=== PATIENT | female | born 1990 | race African-American/Black ===

== ENCOUNTER 2019-03-16 09:30 | Day surgery (SDC) | payer OTHER ==
[2019-03-15 17:17] VITALS: BMI 32.5
[2019-03-16] VITALS (7 sets, daily range): BP systolic 100–141; BP diastolic 60–76; PULSE 16–68; RESP 16–18; Ht 162.6 cm; Wt 93.4 kg
[~2019-03-16] VITALS: Ht 162.6 cm; Wt 93.4 kg
[~2019-03-16 09:30] MED LIST: CEFAZOLIN 2 GM/50 ML (PMX) 50 ML IVPB ONE; SOD CHLORIDE 0.9% 1,000 ML IV SCH
[2019-03-16] MEDS ORDERED: BUPIVACAINE 0.5%/EPI (SDV) 30 ML INJ ONE (10:50)
[2019-03-16] MEDS ORDERED: PROPOFOL 20 ML ONE (10:52)
[2019-03-16] MEDS ORDERED: LIDOCAINE 2% (SDV) 5 ML INJ ONE (10:52)
[2019-03-16] MEDS ORDERED: MIDAZOLAM 1 MG/ML 2 ML INJ ONE (10:52)
[2019-03-16] MEDS ORDERED: DEXAMETHASONE 4 MG/ML 5 ML INJ ONE (10:52)
[2019-03-16] MEDS ORDERED: FENTAnyl 50 MCG/ML VIAL ONE (10:52)
[2019-03-16] MEDS ORDERED: SUCCINYLCHOLINE CHLORIDE 100 MG/5 ML SYG IV ONE (10:52)
[2019-03-16] MEDS ORDERED: ONDANSETRON 4 MG INJ ONE (10:52)
[2019-03-16] MEDS ORDERED: ROCURONIUM 50 MG INJ ONE ×2 (10:52→11:45)
--- NOTE | 2019-03-16 11:26 | PREAC ---
Date/Time of Note Date/Time of Note DATE: 03/16/19 TIME: 11:24 Anesthesia Eval and Record Evaluation Time Pre-Procedure Interview DATE: 03/16/19 TIME: 11:24 Age 28 Sex female NPO: 8 hrs Preoperative diagnosis Right Cheek mass Planned procedure Excision Right Cheek mass Past Medical History Past Medical History: None Surgery & Anesthesia Issues No known issue Meds Anticoagulation: No Beta Katt within 24 hr: No Reason Beta Katt not given: Pt. not on B-Katt No Active Prescriptions or Reported Meds Current Medications Sodium Chloride 1,000 ml @ 75 mls/hr [id number] IV ; Start 03/16/19 at 07:00; Stop 03/16/19 at 20:19 Meds reviewed: Yes Allergies Coded Allergies: No Known Drug Allergies (Unverified Allergy, Unknown, 03/15/19) Allergies Reviewed: Yes Labs/Studies Labs Reviewed: Reviewed by anesthesiologist test: Negative Pre-procedure Exam Last vitals Vital Signs Date Temp Pulse Resp B/P (MAP) Pulse Ox O2 O2 Flow FiO2 Time Delivery Rate 03/16/19 97.6 64 16 110/67 98 Room Air 10:16 (81) Airway: Adequate mouth opening Mallampati: Mallampati I Teeth: Normal Lung: Normal Heart: Normal ASA Physical Status ASA physical status: 1 Emergency: None Pre-operative Attestations Prior to commencing anesthesia and surgery, the patient was re-evaluated, there was verification of: *The patient's identity *The results of appropriate recent lab work and preoperative vital signs *The above evaluation not changing prior to induction *Anesthetic plan, risk benefits, alternative and complications discussed with patient/family; questions answered; patient/family understands, accepts and wishes to proceed. HALLIE OREILLY MD March 16, 2019 11:26
[2019-03-16] MEDS ORDERED: SUGAMMADEX SODIUM 200 MG/2 ML VIAL IV ONE (11:45)
--- NOTE | 2019-03-16 12:18 | SIPON ---
Date/Time of Note Date/Time of Note DATE: 03/16/19 TIME: 12:15 Operative Report Preoperative Diagnosis Right cheek mass Postoperative Diagnosis Same Operation/Procedure Performed Excision of right cheek mass Surgeon see signature line directory assistance operator Dr Boyle Anesthesia: general Estimated blood loss: 0 - 10 ml's Transfusion Required none Specimen Right face mass Grafts/Implants none Complications none MICHELLE KWONG MD March 16, 2019 12:18
[2019-03-16] MEDS ORDERED: MEPERIDINE 25 MG INJ IV PRN (12:30)
[2019-03-16] MEDS ORDERED: ONDANSETRON 4 MG INJ IV PRN (12:30)
[2019-03-16] MEDS ORDERED: DIPHENHYDRAMINE 50 MG INJ IV PRN (12:30)
[2019-03-16] MEDS ORDERED: HYDROmorphONE 1 MG/5 ML IV SYRINGE IV PRN ×3 (12:30)
--- NOTE | 2019-03-16 13:37 | PAC ---
Date/Time of Note Date/Time of Note DATE: 03/16/19 TIME: 13:36 Post-Anesthesia Notes Post-Anesthesia Note Last documented vital signs Vital Signs Date Temp Pulse Resp B/P (MAP) Pulse Ox O2 O2 Flow FiO2 Time Delivery Rate 03/16/19 97.6 13:04 03/16/19 64 18 100/60 98 Room Air 12:51 (73) 03/16/19 8.0 12:35 Activity: WNL Respiratory function: WNL Cardiovascular function: WNL Mental status: Baseline Pain reasonably controlled: Yes Hydration appropriate: Yes Nausea/Vomiting absent: Yes HALLIE OREILLY MD March 16, 2019 13:37
--- NOTE | 2019-03-16 14:10 | OPR ---
DATE OF OPERATION: 03/16/2019 PREOPERATIVE DIAGNOSIS: Subcutaneous mass, right mid portion of the cheek. POSTOPERATIVE DIAGNOSIS: Subcutaneous mass, right mid portion of the cheek. OPERATION PERFORMED: Resection of subcutaneous mass, right mid portion of the cheek. ANESTHESIA: General. ANESTHESIOLOGIST: Dr. Thompson. SURGEON: Wesley Kwong MD SHEARING SUPERVISOR: Yunior Boyle MD INDICATIONS FOR PROCEDURE: The patient is a 28-year-old female who presented with an enlarging mass directly in the midportion of her right cheek. It became significantly increased in size over the la st several months, now measuring approximately 6 cm. She was counseled as to the benefits of excisio n. She consented and was scheduled for surgery. DESCRIPTION OF PROCEDURE: The patient was brought to the operating theater, placed under general ane sthesia. The right face was prepped and draped in usual sterile fashion. Incision was made directly over the mass with 15-blade scalpel. Subcutaneous tissue was dissected with combination of sharp di ssection and cautery. A large encapsulated mass was identified. It appeared to be consistent with e pidermal inclusion cyst. The capsule was then incised and large amount of keratinous material was re moved and then the capsule was meticulously dissected from the surrounding tissue. It was removed an d sent for pathologic analysis. The wound was irrigated. Minimal bleeding was controlled with caute ry. The area was infiltrated with 0.5% Marcaine local anesthetic with epinephrine and the skin was t hen reapproximated with 5-0 PDS suture in subcuticular fashion and Dermabond was applied. The patien t tolerated the procedure well. The estimated blood loss was 10 mL. There were no complications and the patient was transported in stable condition to the recovery room. Dictated By: WESLEY KWONG MD TL/MEHUL Conf#: [id number] DID#: [id number]
== END 2019-03-16 13:45 | disposition home or self-care (01) ==
LOC: SDS 09:30
PROVIDERS: ATTEND Surgery Surgical Oncology
DX: L72.0 Epidermal cyst (principal)
CPT/HCPCS: 11442; 88307; J0690; J1100; J2250; J2405; J3010; Z7610